=== PATIENT | male | born 1960 | race Caucasian/White ===

== ENCOUNTER 2016-09-27 05:36 | Day surgery (SDC) | payer OTHER ==
[2016-09-27] MEDS ORDERED: LIDOCAINE 1% 5 ML SDV ONE (05:57)
[2016-09-27] MEDS ORDERED: ceFAZolin 2 GM/DEXTROSE 100 ML IV ONE (06:00)
[2016-09-27] MEDS ORDERED: BUPIVACAINE 0.5% 30 ML SDV ONE (06:55)
[2016-09-27] MEDS ORDERED: LIDOCAINE 1% 30 ML SDV ONE (06:55)
[2016-09-27] MEDS ORDERED: MIDAZOLAM 2 MG/2 ML VIAL ONE (07:24)
[2016-09-27] MEDS ORDERED: fentaNYL 250 MCG/5 ML INJ ONE (07:27)
[2016-09-27] MEDS ORDERED: PROPOFOL/EMULSION 500 MG/50 ML BOTTLE IV ONE (07:27)
[2016-09-27] MEDS ORDERED: KETOROLAC 30 MG/1 ML SDV ONE (08:30)
[2016-09-27] MEDS ORDERED: ONDANSETRON 4 MG/2 ML VIAL ONE (08:30)
[2016-09-27] MEDS ORDERED: DEXAMETHASONE 4 MG/ML VIAL ONE (08:30)
--- NOTE | 2016-09-27 09:40 | GOP ---
[f rep st] OPERATIVE REPORT DATE OF OPERATION: 09/27/2016 SURGEON: Elisabeth Leggett MD TOURS CAPTAIN: Eloise Juan PA-C. ANESTHESIA: General. ANESTHESIOLOGIST: Dr. Carter Davalos. PREOPERATIVE DIAGNOSIS: Recurrent right inguinal hernia. POSTOPERATIVE DIAGNOSIS: Recurrent right indirect inguinal hernia. PROCEDURE PERFORMED: Open right inguinal hernia repair with mesh. FINDINGS/SPECIMENS: Hernia sac and lipoma of the cord. ESTIMATED BLOOD LOSS: 5 cc. INDICATIONS: Jovani Choe is a 56-year-old, who underwent da Mango bilateral inguinal hernia repair with mesh. He developed a recurrence on the right side. DESCRIPTION OF PROCEDURE: Mr. Choe was brought into the operating room, placed supine on the table, and general anesthesia was administered. His bilateral groin was prepped and draped in the usual sterile fashion. I infiltrated the area with 10 cc of 0.5% Marcaine prior to making incisions. I made an incision in a natural skin crease extending from the pubis directed toward the anterior superior iliac spine. I continued my dissection down through the subcutaneous tissues. I ligated small bleeding vessels. I divided Camper's and Juancarlos's. I encountered the hernia sac without actually identifying the aponeurosis of the external oblique. It was a very large hernia sac with a large lipoma of the cord. I initially reduced the lipoma of the cord and ligated this. I then was able to more clearly identify the hernia sac. I fully was able to reduce this off the cord and cord structures while protecting the cord and cord structures. I twisted the sac and ligated at the base. I sutured it with 2-0 Vicryl. I clearly identified the inguinal ligament and the aponeurosis of the external oblique. I placed [employer] mesh that was cut to size and anchored this to the pubis. I then sutured it with 2- 0 Prolene to the conjoined tendon as well as to the external oblique. The mesh came around the cord, enough to accommodate my 5th fingertip, and I tucked the tails underneath the aponeurosis of the external oblique. I closed the aponeurosis of the external oblique. I sutured Camper's and Juancarlos's fascia with 2-0 Vicryl. I closed skin with 3-0 Vicryl, followed by 4-0 Monocryl. Mastisol, Steri-Strips, and a sterile dressing were applied. He was awakened in the operating room, extubated, transferred to PACU in stable condition. /[id number]/MODL MTDD
== END 2016-09-27 10:05 | disposition home or self-care (01) ==
LOC: FSGY 05:36
PROVIDERS: ATTEND Surgery
PROC: 0YU50JZ Supplement Right Inguinal Region with Synthetic Substitute, Open Approach (ICD-10-PCS; principal; 2016-09-27 07:30)
DX: K40.91 Unilateral inguinal hernia, without obstruction or gangrene, recurrent (principal); I10 Essential (primary) hypertension
CPT/HCPCS: C1781; J0690; J1100; J1885; J2250; J2405; J2704; J3010

== ENCOUNTER → 2017-08-29 | Outpatient (CLI) | payer OTHER | LOC: CIMAGING 08:37 | PROVIDERS: ATTEND Family Medicine | DX: R91.8 Other nonspecific abnormal finding of lung field (principal); I25.10 Atherosclerotic heart disease of native coronary artery without angina pectoris; E01.0 Iodine-deficiency related diffuse (endemic) goiter | CPT/HCPCS: 71250-PO ==